=== PATIENT | male | born 1995 | race Caucasian/White ===

== ENCOUNTER 2017-11-07 12:22 | Emergency (ER) | payer SELFPAY ==
[2017-11-07 12:24] VITALS: BP 156/68; PULSE 105; RESP 18; TEMP 36.4; O2SAT 98; BMI 27.1
--- NOTE | 2017-11-07 12:26 | ED.RN ---
EMPLOYMENT NOT IN DATABASE. 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
--- NOTE | 2017-11-07 14:14 | ED.VISSUMM ---
- ER Visit Summary Date of Service: 11/07/17 Chief Complaint: [Left eye foreign body] History of Present Illness: The patient is a 22 M [presents to the emergency department with complaint of a foreign body in his left eye that he states occurred while at home 2 days ago. 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 Patient states he was wearing eye protection. Patient unsure of his last tetanus. Patient tells me this is not work-related and does not want to file workman's comp.] Physical Examination: [HEENT-PERRLA, EOMI. Cranial nerves II through XII grossly intact. TMs clear. Mucous membranes moist. No adenopathy. Left conjunctiva is erythematous. There is an obvious punctate foreign body noted at the 9 o'clock position on the left cornea. Cardiovascular-regular rate and rhythm without murmur or ectopy Lungs-clear to auscultation, chest wall stable without crepitus or subcu emphysema Abdomen-normoactive bowel sounds, soft, nontender, no rebound or rigidity, no peritoneal signs. Extremities-intact ?4, normal range of motion, normal pulses, atraumatic] Test Results: [None indicated] Emergency Department Course and Treatment: [Tetracaine was placed in the left eye. Using the eye bur I was able to easily remove the foreign body however a piece of rust ring does remain. I attempted to remove the rust ring however continues to still have small amount of rust ring noted.] Treatment Plan: [Patient will be given a prescription for Dexter for pain and gentamicin ophthalmic drops. Patient will be given a tetanus booster in the emergency department. Patient will be instructed to follow-up with ophthalmology within the next 1-2 days.] Disposition: [Discharged to home in stable condition] Impression: [Left corneal foreign body removed-small residual rust ring remains] This note was generated with [employer] dictation software. It may contain incorrect words, spelling, and punctuation that were not noted in review of the chart prior to signing ED Disposition - Plan for ED Patient: Chief Complaint: Eye Problem
--- NOTE | 2017-11-07 14:18 | ED.DCSUM_ITS ---
- ER Visit Summary Date of Service: 11/07/17 Chief Complaint: [Left eye foreign body] History of Present Illness: The patient is a 22 M [presents to the emergency department with complaint of a foreign body in his left eye that he states occurred while at home 2 days ago. 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 Patient states he was wearing eye protection. Patient unsure of his last tetanus. Patient tells me this is not work-related and does not want to file workman's comp.] Physical Examination: [HEENT-PERRLA, EOMI. Cranial nerves II through XII grossly intact. TMs clear. Mucous membranes moist. No adenopathy. Left conjunctiva is erythematous. There is an obvious punctate foreign body noted at the 9 o'clock position on the left cornea. Cardiovascular-regular rate and rhythm without murmur or ectopy Lungs-clear to auscultation, chest wall stable without crepitus or subcu emphysema Abdomen-normoactive bowel sounds, soft, nontender, no rebound or rigidity, no peritoneal signs. Extremities-intact ?4, normal range of motion, normal pulses, atraumatic] Test Results: [None indicated] Emergency Department Course and Treatment: [Tetracaine was placed in the left eye. Using the eye bur I was able to easily remove the foreign body however a piece of rust ring does remain. I attempted to remove the rust ring however continues to still have small amount of rust ring noted.] Treatment Plan: [Patient will be given a prescription for Steward for pain and gentamicin ophthalmic drops. Patient will be given a tetanus booster in the emergency department. Patient will be instructed to follow-up with ophthalmology within the next 1-2 days.] Disposition: [Discharged to home in stable condition] Impression: [Left corneal foreign body removed-small residual rust ring remains] This note was generated with [employer] dictation software. It may contain incorrect words, spelling, and punctuation that were not noted in review of the chart prior to signing ED Disposition - Plan for ED Patient: Chief Complaint: Eye Problem
--- NOTE | 2017-11-07 14:18 | ED.DEP ---
ED Disposition - Plan for ED Patient: Chief Complaint: Eye Problem Instructions: ED Foreign Body Cornea W Rust Ring Prescriptions: Hydrocodone Bitart/Apap 5-325 [[place] 5/325] 1 - 2 tab PO Q4H PRN PRN 3 Days #12 tab PRN Reason: Pain Referrals: Amrit Godinez MD [STAFF PHYSICIAN] - 1 Day for another exam
[2017-11-07] MEDS: Gentamicin Sulfate 1 OPTH.BTL 2 DRP LEFT EYE (14:24)
[2017-11-07] MEDS: Diphth,Pertuss(Acell),Tet Vac 0.5 ML Vial IM (14:24)
== END 2017-11-07 14:40 | disposition home or self-care (01) ==
LOC: ED 14:34
PROVIDERS: Emergency Provider Emergency Medicine
DX: T15.02XA Foreign body in cornea, left eye, initial encounter (principal); X58.XXXA Exposure to other specified factors, initial encounter; Y93.9 Activity, unspecified; Y92.9 Unspecified place or not applicable
CPT/HCPCS: 90715; 99282

== ENCOUNTER 2019-06-01 17:33 | Emergency (ER) | payer OTHER, SELFPAY ==
[2019-06-01 17:34] VITALS: BP 126/87; PULSE 86; RESP 16; TEMP 36.1; O2SAT 100; BMI 27.1
--- NOTE | 2019-06-01 17:36 | RAD_ITS ---
STUDY: X-RAY - LEFT ANKLE REASON FOR EXAM: Male, 24 years old. Trauma TECHNIQUE: 3 view(s) of the ankle. COMPARISON: None. FINDINGS: There is a nondisplaced fracture of the distal fibula proximal to the talar joint line. Distal tibia is intact. Tibiotalar joint is located. Soft tissues are unremarkable. RAD/Ankle min 3 Views IMPRESSION: Acute nondisplaced proximal fibular fracture, Sherman Wiley Electronically Signed: Liv Harris, at 18:33 EDT Tel , Service support ,
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
[2019-06-01] MEDS: HYDROcodone Bitartrate/Apap 5/325 Tablet PO (18:23)
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
== END 2019-06-01 19:54 | disposition home or self-care (01) ==
PROVIDERS: Emergency Provider Emergency Medicine
DX: S82.832A Other fracture of upper and lower end of left fibula, initial encounter for closed fracture (principal); V86.56XA Driver of dirt bike or motor/cross bike injured in nontraffic accident, initial encounter; Y93.39 Activity, other involving climbing, rappelling and jumping off; Y92.9 Unspecified place or not applicable
CPT/HCPCS: 29515; 73590; 73610; 99284

== ENCOUNTER 2019-06-13 10:33 | Day surgery (SDC) | payer OTHER, SELFPAY ==
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
[2019-06-05 14:46] VITALS: BMI 27.1
[2019-06-12 11:02] VITALS: BMI 27.1
[2019-06-13] VITALS (7 sets, daily range): BP systolic 135–160; BP diastolic 69–88; PULSE 65–86; RESP 16–18; TEMP 36.4–36.7; O2SAT 97–100; BMI 25.8
[2019-06-13] MEDS: Lactated Ringers 1,000 ML 100 ML IV (11:07)
--- NOTE | 2019-06-13 12:00 | RAD_ITS ---
STUDY: X-RAY - LEFT ANKLE REASON FOR EXAM: ORIF of distal fibular fracture. TECHNIQUE: 6 intraoperative images of the ankle. COMPARISON: Radiographs 06/01/2019. FINDINGS: There is an orthopedic plate and screws transfixing a distal fibular fracture in anatomic alignment and position. 39.5 seconds of fluoroscopy time was used. Electronically Signed: Fernandez Abraham MD at 15:14 EDT Tel , Service support , RAD/Ankle 2 Views
[2019-06-13] MEDS: Cefazolin 2 GM in 0.9% Normal Saline 100 ML IV (12:10)
[2019-06-13] MEDS: Mupirocin Ointment 22gm Tube 1 APPLIC (13:00)
[2019-06-13] MEDS: Bupivacaine Mpf 0.5% 30 ML VIAL (14:00)
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
--- NOTE | 2019-06-13 14:08 | PCM.DC.ORTHO ---
Discharge Diet: No Restrictions - nwb left leg, follow up in 2 weeks for xrays and suture removal, call with concerns, leave splint clean, dry, and intact Discharge Activity: May Not Drive May shower in (days): 1 Ice area for (Minutes): 20 - Every hour while awake. Weight Bearing Status: Weight bearing as tolerated Keep extremity elevated above heart level: Operative Extremity Call your doctor if your incision/area has: Continuous Slow Oozing, Sudden Increased Bleeding, Increased Pain/ Swelling, Increased Redness, Foul Smelling Discharge Call your doctor if you observe: Fever of 101 or Higher, Coldness, Increased Pain, Numbness or Tingling, Change in Color, Calf discomfort Allergies/Adverse Reactions: Allergies No Known Allergies Allergy (Verified 06/13/19 10:52) Medications to take at Discharge Oxycodone HCl/Acetaminophen [Percocet 5/325] 1 - 2 tablet PO Q6H PRN PRN 5 Days #28 tablet 06/13/19 The following prescriptions were given: Oxycodone HCl/Acetaminophen [Percocet 5/325] 1 - 2 tablet PO Q6H PRN PRN 5 Days #28 tablet PRN Reason: Pain Transmission Status: Sent to [facility] Primary Care Physician: Care Physician,No Primary [Primary Care Provider] - Test Results: Test results from this visit will be discussed in further detail at your follow-up appointment, if applicable. Please Follow Up With: Ivania Nash, - [phone]
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
[2019-06-13] MEDS: HYDROcodone Bitartrate/Apap 5/325 Tablet PO (16:16)
== END 2019-06-13 17:18 | disposition home or self-care (01) ==
LOC: SDC 10:34 → AC 10:35
PROVIDERS: Referring Provider Orthopaedic Surgery; Visit Provider Orthopaedic Surgery
PROC: (CPT 27792; principal; 2019-06-13 11:40)
DX: S82.832A Other fracture of upper and lower end of left fibula, initial encounter for closed fracture (principal); V86.56XA Driver of dirt bike or motor/cross bike injured in nontraffic accident, initial encounter; Y93.9 Activity, unspecified; Y92.9 Unspecified place or not applicable
CPT/HCPCS: 01480; 27792; 73600; 73610; 76000; C1713; J7120; J2405

== ENCOUNTER → 2019-06-28 13:28 | Outpatient (CLI) | payer OTHER, SELFPAY ==
[2019-06-28 13:15] VITALS: BMI 25.8
--- NOTE | 2019-06-28 13:30 | RAD_ITS ---
STUDY: X-RAY - LEFT ANKLE REASON FOR EXAM: Status post ORIF. TECHNIQUE: 3 view(s) of the ankle. COMPARISON: Intraoperative images 06/13/2019. FINDINGS: There is an intact orthopedic plate and screws transfixing a distal fibular fracture in anatomical alignment and position. Normal tibiotalar articulation and ankle mortise. Normal visualized talus and calcaneus. The visualized subtalar, talonavicular, calcaneocuboid and tarsal articulations are normal. The soft tissue structures are unremarkable. RAD/Ankle min 3 Views IMPRESSION: ORIF of distal fibular fracture in anatomic alignment and position. Electronically Signed: Fernandez Abraham MD at 13:14 EDT Tel , Service support ,
== END ==
PROVIDERS: Referring Provider Physician Assistant; Visit Provider Physician Assistant
DX: S82.832A Other fracture of upper and lower end of left fibula, initial encounter for closed fracture (principal)
CPT/HCPCS: 73610

== ENCOUNTER → 2019-07-19 10:02 | Outpatient (CLI) | payer OTHER, SELFPAY ==
[2019-07-19 09:57] VITALS: BMI 25.8
--- NOTE | 2019-07-19 10:03 | RAD_ITS ---
STUDY: X-RAY - LEFT ANKLE REASON FOR EXAM: Male, 24 years old. Postop TECHNIQUE: 3 view(s) of the ankle. COMPARISON: Prior study of 06/28/2019 FINDINGS: There is demonstrated a fixation plate with multiple screws stabilizing a healing nondisplaced oblique fracture of the distal fibula. The fracture line remains faintly visible. Normal medial and lateral malleoli. Normal tibiotalar articulation and ankle mortise. Normal visualized talus and calcaneus. The visualized subtalar, talonavicular, calcaneocuboid and tarsal articulations are normal. The soft tissue structures are unremarkable. RAD/Ankle min 3 Views IMPRESSION: Open reduction and internal fixation with plate and multiple screws are previously noted oblique fracture of the distal fibula. The fracture remains in excellent alignment. Bone union has not occurred as of yet. Electronically Signed: Anthony Arteaga MD at 22:58 EST , Service support ,
== END ==
PROVIDERS: Referring Provider Physician Assistant; Visit Provider Physician Assistant
DX: Z47.89 Encounter for other orthopedic aftercare (principal)
CPT/HCPCS: 73610

== ENCOUNTER 2019-08-02 13:30 | Outpatient (RCR) | payer OTHER, SELFPAY ==
[2019-06-28 14:09] VITALS: BMI 25.8
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
--- NOTE | 2020-01-08 11:54 | HP.PT.NRP ---
MAGO ZIEGLER was seen in my office for initial evaluation on 07/04/19. The following Plan of Care was established for this patient: Initial Frequency: 2x /Week Initial Duration: 4 Weeks This patient was last seen in our office . Pertinent comments regarding their Physical therapy will appear below: Patient has not attended PT for over 8 weeks- appropriate to be d/c at this time and follow up with MD as needed. At this point I will be discontinuing this patient from physical therapy. I would be happy to see this patient again in the future if found appropriate by the physician. Thank you! GURPREET SwiftT
== END 2019-08-02 19:00 | disposition home or self-care (01) ==
LOC: PT 13:30
PROVIDERS: Referring Provider Physician Assistant; Visit Provider Physician Assistant
DX: Z98.890 Other specified postprocedural states (principal)
CPT/HCPCS: 97110; 97140; 97161